=== PATIENT | male | born 1965 | race African-American/Black ===

== ENCOUNTER → 2016-06-23 | Outpatient (CLI) | payer OTHER ==
--- NOTE | 2016-06-23 16:27 | CT ---
CT abdomen and pelvis without contrast Indication: Left-sided flank pain, hematuria. Comparison: None Technique: CT images of the abdomen pelvis were obtained without contrast, per protocol. Automatic e xposure control was utilized. Findings: No aggressive osseous lesion. The lung bases are clear. Within the limitations of a noncontrast study, the liver, gallbladder, spleen, stomach, duodenum, pa ncreas, adrenals, and kidneys appear normal. Specifically, there is no nephrolithiasis or hydronephr osis. No ureteral stone is identified. There is no significant bowel thickening or dilatation of the lower GI tract. The urinary bladder, p rostate, and rectum are unremarkable. No free fluid or adenopathy is identified. Impression: No source for patient's symptoms identified. Specifically, no nephrolithiasis or hydronephrosis. Reported By:
== END ==
LOC: RAD 11:58
DX: R31.9 Hematuria, unspecified (principal)
CPT/HCPCS: 74176